=== PATIENT | male | born 1995 | race African-American/Black ===

== ENCOUNTER 2019-04-03 15:05 | Emergency (ER) | payer MEDICAID ==
[~2019-04-03] VITALS: Ht 177.8 cm; Wt 101.0 kg
[2019-04-03 15:50] VITALS: BP 148/73
[2019-04-03] MEDS ORDERED: AZITHROMYCIN 500 MG TABLET PO ONE (18:15)
[2019-04-03] MEDS ORDERED: CEFTRIAXONE SODIUM 250 MG/VIAL IM ONE (18:15)
[2019-04-03] MEDS ORDERED: FLUCONAZOLE 100MG TABLET PO ONE (18:15)
[2019-04-03] MEDS ORDERED: FLUCONAZOLE 150MG TABLET PO NR (18:30)
== END 2019-04-03 19:01 | disposition home or self-care (01) ==
LOC: ER 15:05
DX: N48.22 Cellulitis of corpus cavernosum and penis (principal); E11.9 Type 2 diabetes mellitus without complications; F12.10 Cannabis abuse, uncomplicated
CPT/HCPCS: 99283; J0696; 99282

== ENCOUNTER 2021-08-01 21:53 | Emergency (ER) | payer MEDICAID ==
[~2021-08-01] VITALS: Ht 177.8 cm; Wt 100.0 kg
[2021-08-01 22:20] VITALS: BP 141/80
[2021-08-01] MEDS ORDERED: ACETAMINOPHEN WITH CODEINE 300/30MG TABLET PO ONE (22:30)
[2021-08-01] MEDS ORDERED: LIDOCAINE HCL/PF 1% 10 MG/ML 5ML VIAL INFIL ONE (22:30)
[2021-08-01] MEDS ORDERED: BACITRACIN ZINC OINT UDPKT TOP ONE (22:30)
[2021-08-01] MEDS ORDERED: AMOX-424 MT (22:52)
[2021-08-01] MEDS ORDERED: LIDOCAINE HCL 1% 20ML VIAL (Pyxis) INJ INFIL SCH (23:00)
== END 2021-08-02 00:01 | disposition home or self-care (01) ==
LOC: ER 21:53
DX: K61.0 Anal abscess (principal); E11.9 Type 2 diabetes mellitus without complications; F12.10 Cannabis abuse, uncomplicated
CPT/HCPCS: 10060; 99283; J3490

== ENCOUNTER 2021-08-03 19:39 | Emergency (ER) | payer MEDICAID ==
[~2021-08-03] VITALS: Ht 177.8 cm; Wt 100.0 kg
[~2021-08-03 19:39] MED LIST: AMOX-424 MT
[2021-08-03 19:59] VITALS: BP 133/73
== END 2021-08-03 20:46 | disposition home or self-care (01) ==
LOC: ER 19:39
DX: Z48.00 Encounter for change or removal of nonsurgical wound dressing (principal); L02.31 Cutaneous abscess of buttock
CPT/HCPCS: 99281

== ENCOUNTER 2022-01-13 08:49 | Emergency (ER) | payer MEDICAID ==
[~2022-01-13] VITALS: Ht 165.1 cm; Wt 101.0 kg
[2022-01-13] MEDS ORDERED: KETOROLAC 60MG/2ML VIAL IM ONE (09:30)
[2022-01-13] MEDS ORDERED: IBUP-2029 MT (09:33)
[2022-01-13] MEDS ORDERED: MELO-105 MT (09:33)
[2022-01-13] MEDS ORDERED: CEPH500C2 MT (09:33)
[2022-01-13 10:00] VITALS: BP 128/76
== END 2022-01-13 10:00 | disposition home or self-care (01) ==
LOC: ER 09:15
DX: L02.31 Cutaneous abscess of buttock (principal); E11.9 Type 2 diabetes mellitus without complications; F12.10 Cannabis abuse, uncomplicated
CPT/HCPCS: 99283; J1885

== ENCOUNTER → 2022-01-16 | Emergency (ER) | payer MEDICAID ==
[~2022-01-16] MED LIST changes: +CEPH500C2 MT; +MELO-105 MT
== END | disposition left against medical advice (07) ==
LOC: ER 19:57
DX: Z53.21 Procedure and treatment not carried out due to patient leaving prior to being seen by health care provider (principal); L02.31 Cutaneous abscess of buttock

== ENCOUNTER 2024-03-26 08:42 | Emergency (ER) | payer MEDICAID ==
[~2024-03-26] VITALS: Ht 177.8 cm; Wt 65.0 kg
[2024-03-26 08:50] VITALS: TEMP 98.4; O2SAT 99
[2024-03-26 10:02] VITALS: BP 144/94
[2024-03-26] MEDS: KETOROLAC 30MG/ML VIAL IM STA (10:02)
[2024-03-26 10:08] VITALS: PULSE 74; RESP 17; O2SAT 99
== END 2024-03-26 10:25 | disposition home or self-care (01) ==
LOC: ER 09:06
DX: J06.9 Acute upper respiratory infection, unspecified (principal); R09.1 Pleurisy; E11.9 Type 2 diabetes mellitus without complications; F12.10 Cannabis abuse, uncomplicated; Z20.822 Contact with and (suspected) exposure to COVID-19
CPT/HCPCS: 99284; 71045; 87426; 87804 ×2; 96372; J1885

== ENCOUNTER 2025-07-29 13:18 | Emergency (ER) | payer MEDICAID ==
[~2025-07-29] VITALS: Ht 177.8 cm; Wt 114.0 kg
[2025-07-29 13:32] VITALS: O2SAT 100
[2025-07-29 16:19] VITALS: BP 137/95; PULSE 71; RESP 18; TEMP 37; O2SAT 100
== END 2025-07-29 16:23 | disposition home or self-care (01) ==
LOC: ER 13:18
DX: E10.319 Type 1 diabetes mellitus with unspecified diabetic retinopathy without macular edema (principal); Z79.1 Long term (current) use of non-steroidal anti-inflammatories (NSAID); Z79.4 Long term (current) use of insulin; Z91.148 Patient's other noncompliance with medication regimen for other reason
CPT/HCPCS: 82962; 99282